=== PATIENT | female | born 1970 | race African-American/Black ===

== ENCOUNTER 2021-04-18 05:23 | Emergency (ER) | payer OTHER | END 2021-04-18 05:59 | disposition home or self-care (01) | LOC: CSHERS 05:23 | DX: M54.50 Low back pain, unspecified (principal); G89.29 Other chronic pain; I10 Essential (primary) hypertension | CPT/HCPCS: 99283 ==

== ENCOUNTER 2022-01-24 11:59 | Emergency (ER) | payer OTHER ==
[2022-01-24] MEDS ORDERED: Ondansetron PF 4 MG/2 ML Vial ONE (12:20)
[2022-01-24] MEDS ORDERED: Morphine 4 MG/ML VIAL ONE (12:20)
[2022-01-24 12:41] LABS: ALT (SGPT) 59 U/L (8-55); AST (SGOT) 57 U/L (5-34); Albumin 4.6 g/dL (3.5-5.0); Alkaline Phosphatase 105 U/L (40-110); Anion Gap 20 mmol/L (10-20); BUN (Urea Nitrogen) 14 mg/dL (7.0-18.7); Bilirubin, Total 0.9 mg/dL (0.2-1.2); CK (CPK) 475 U/L (29-168); Calc. Creatinine Clearance 0 mL/min (70-130); Calcium 10.3 mg/dL (7.8-10.44); Carbon Dioxide 23 mmol/L (22-29); Chloride 98 mmol/L (98-107); Estimated GFR 75; Globulin 4.8 g/dL (2.4-3.5); Glucose 113 mg/dL (70-105); Lipase 24 U/L (8-78); Potassium 3.7 mmol/L (3.5-5.1); Protein, Total 9.4 g/dL (6.0-8.3); Sodium 137 mmol/L (136-145)
[2022-01-24 13:02] LABS: Eosinophils 1 % (0-10); Lymphocytes 40 % (21-51)
[2022-01-24 13:08] LABS: Neutrophil 42 % (42-75); Reactive Lymphocytes 9 % (0-10)
[2022-01-24 13:09] LABS: Monocytes 8 % (0-10)
[2022-01-24 13:10] LABS: Large Platelets SLIGHT; Platelet Morphology Comment Appears Adequate
[2022-01-24 13:11] LABS: Hemoglobin 14.9 g/dL (12.0-15.5); Mean Corpuscular Hemoglobin 28.3 pg (27.0-33.0); Mean Corpuscular Volume 85.7 fl (81.6-98.3); Mean Platelet Volume 10.4 fl (7.4-10.4); Platelet Count 279 10x3/uL (150-450); RBC Distribution Width 12.4 % (11.5-14.5); Red Blood Cell (RBC) Count 5.26 10x6/uL (3.90-5.03); White Blood Cell (WBC) Count 5.1 10x3/uL (3.5-10.5)
[2022-01-24 13:12] LABS: MDiff Complete? YES; RBC Morphology Normal
[2022-01-24] MEDS ORDERED: Iopamidol 300 61% 100 ML VIAL FS ONE (14:28)
== END 2022-01-24 13:54 | disposition home or self-care (01) ==
LOC: CSHERS 11:59
DX: R10.13 Epigastric pain (principal); I10 Essential (primary) hypertension; Z79.899 Other long term (current) drug therapy
CPT/HCPCS: 74177; 80053; 82550; 83690; 84484; 85025; 93005; 96361; 96374; 96375; J2270; J2405; Q9967

== ENCOUNTER 2023-06-23 21:40 | Emergency (ER) | payer OTHER ==
[2023-06-23 22:58] LABS: Hemoglobin 12.8 g/dL (12.0-15.5); Mean Corpuscular HGB CONC 33.7 g/dL (32.0-36.0); Mean Corpuscular Hemoglobin 28.5 pg (27.0-33.0); Mean Corpuscular Volume 84.6 fl (81.6-98.3); Mean Platelet Volume 10.4 fl (7.4-10.4); Platelet Count 190 10x3/uL (150-450); RBC Distribution Width 13.1 % (11.5-14.5); Red Blood Cell (RBC) Count 4.49 10x6/uL (3.90-5.03); White Blood Cell (WBC) Count 4.7 10x3/uL (3.5-10.5)
[2023-06-23 22:59] LABS: MDiff Complete? YES
[2023-06-23 23:00] LABS: ALT (SGPT) 63 U/L (8-55); AST (SGOT) 102 U/L (5-34); Albumin 4.2 g/dL (3.5-5.0); Alkaline Phosphatase 92 U/L (40-110); Anion Gap 18 mmol/L (10-20); BUN (Urea Nitrogen) 5 mg/dL (9.8-20.1); Bilirubin, Total 0.5 mg/dL (0.2-1.2); Calc. Creatinine Clearance 0 mL/min (70-130); Calcium 8.4 mg/dL (7.8-10.44); Carbon Dioxide 19 mmol/L (22-29); Chloride 105 mmol/L (98-107); Estimated GFR 81; Globulin 3.9 g/dL (2.4-3.5); Glucose 86 mg/dL (70-105); Lipase 42 U/L (8-78); Potassium 3.8 mmol/L (3.5-5.1); Protein, Total 8.1 g/dL (6.0-8.3); Sodium 138 mmol/L (136-145)
[2023-06-23 23:02] LABS: Acetaminophen 12 mcg/mL (10.0-30.0); Salicylate Less than 8.0 mg/dL (15.0-30.0)
[2023-06-23 23:05] LABS: Troponin I Less than 0.010 ng/mL (< 0.028)
[2023-06-23 23:27] LABS: Bilirubin Neg (Negative); Blood, Urine 10 (Negative); Clarity Clear (Clear); Glucose, Urine (Dipstick) Normal (Negative); Ketone, Urine Negative (Negative); Leukocyte Negative (Negative); Nitrite Negative (Negative); Protein, Urine (Dipstick) 15 mg/dl (Neg-Trace); Specific Gravity, Urine 1.005 (1.005-1.030); Urobilinogen Normal mg/dL (Less than 2); pH, Urine 6.5 (5.0-9.0)
[2023-06-23 23:40] LABS: CAUTI Indications for Culture Pelvic or flank pain; RBC/HPF 0-3 HPF (0-3); WBC/HPF 0-3 HPF (0-3)
[2023-06-23 23:41] LABS: Bacteria/HPF 2+ HPF (None Seen); Urine Culture Reflex No No
[2023-06-23 23:42] LABS: Microcytosis SLIGHT = 6-15 cells (100X) (0-5/hpf); Platelet Adequacy Comment Appears Adequate
[2023-06-23 23:43] LABS: Band 4 % (5-11); Eosinophils 6 % (0-10); Lymphocytes 55 % (21-51); Monocytes 11 % (0-10); Neutrophil 24 % (42-75)
[2023-06-23 23:56] LABS: SARS-CoV-2 NAA Rapid Test Not Detected (NotDetected)
[2023-06-24] MEDS ORDERED: Ketorolac Tromethamine 30 MG (1 mL) VIAL ONE (00:59)
== END 2023-06-24 02:14 | disposition home or self-care (01) ==
LOC: CSHERS 21:40
DX: K80.20 Calculus of gallbladder without cholecystitis without obstruction (principal); F10.929 Alcohol use, unspecified with intoxication, unspecified; I10 Essential (primary) hypertension
CPT/HCPCS: 36415; 76705; 80053; 80307; 81001; 83690; 84484; 85025; 93005; 96374; J1885